=== PATIENT | female | born 1990 | race Caucasian/White ===

== ENCOUNTER 2019-11-30 21:32 | Emergency (ER) | payer SELFPAY ==
[2019-11-30 21:40] VITALS: BP 132/86
[2019-11-30] MEDS ORDERED: LIDOCAINE 1% INJ-PF (10 MG/ML) 30 ML SDV INJ ONE (22:01)
[2019-11-30] MEDS ORDERED: DIPH/PERTUSS(ACELL)/TETANUS VAC/PF 0.5 ML SYR (>=10YO) IM ONE (22:01)
--- NOTE | 2019-11-30 22:04 | ER Document Report ---
HPI - HPI Patient complains to provider of: finger lac Time Seen by Provider: 11/30/19 21:58 Onset: This evening Onset/Duration: Sudden Quality of pain: No pain Pain Level: Denies Context: Patient with laceration to palmar surface of right fourth finger. Patient state s that she was scaling a fish, slipped and cut her finger. Patient unsure of last tetanus immunization. Exacerbated by: Movement Relieved by: Denies Similar symptoms previously: No Recently seen / treated by doctor: No - ROS ROS below otherwise negative: Yes Systems Reviewed and Negative: Yes All other systems reviewed and negative - NEURO Neurology: DENIES: Weakness - GASTROINTESTINAL Gastrointestinal: DENIES: Nausea - DERM Skin Color: Normal Skin Problems: Laceration Past Medical History - General Information source: Patient - Social History Smoking Status: Current Every Day Smoker Frequency of alcohol use: Occasional Drug Abuse: None Occupation: bilingual legal assistant Family History: Reviewed & Not Pertinent - Past Medical History Cardiac Medical History: Reports: Hx Hypercholesterolemia Pulmonary Medical History: Reports: Hx Asthma Endocrine Medical History: Reports: Hx Diabetes Mellitus Type 2 Surgical Hx: Negative Vertical Provider Document - CONSTITUTIONAL Agree With Documented VS: Yes Exam Limitations: No Limitations General Appearance: WD/WN, No Apparent Distress - HEENT HEENT: Atraumatic, Normocephalic - NECK Neck: Normal Inspection - RESPIRATORY Respiratory: No Respiratory Distress - CARDIOVASCULAR Pulses: Normal: Radial - BACK Back: Normal Inspection - MUSCULOSKELETAL/EXTREMETIES Musculoskeletal/Extremeties: MAEW, FROM - NEURO Level of Consciousness: Awake, Alert, Appropriate Motor/Sensory: No Motor Deficit, No Sensory Deficit - DERM Integumentary: Warm, Laceration - 1 cm laceration to palmar surface of right fourth finger over the middle phalanx Course - Vital Signs Vital signs: Temp Pulse Resp BP Pulse Ox 98.7 F 103 H 16 132/86 H 100 11/30/19 21:38 11/30/19 21:38 11/30/19 21:38 11/30/19 21:38 11/30/19 21:38 Procedures - Laceration/Wound Repair Right Finger 4th digit Wound length (cm): 1 Wound's Depth, Shape: Linear Anesthetic type: 1% Lidocaine Wound explored: Clean Wound Repaired With: Sutures Suture Size/Type: 5:0, Nylon Number of Sutures: 1 Post-procedure wound care: Sterile dressing applied Post-procedure NV exam normal: Yes Complications: No Hands front picture: 1 - lac Discharge - Discharge Clinical Impression: Finger laceration Qualifiers: Encounter type: initial encounter Finger: ring finger Damage to nail status: without damage Foreign body presence: without foreign body Laterality: right Qualified Code(s): S61.214A - Laceration without foreign body of right ring finger without damage to nail, initial encounter Condition: Stable Disposition: HOME, SELF-CARE Instructions: Laceration Care (OM), Prophylactic Antibiotic (OM), Tetanus Immunization Given ([facility]) Additional Instructions: Return immediately for any new or worsening symptoms Followup with your primary care provider, call tomorrow to make a followup appointment Suture removal in 8 days Prescriptions: Cephalexin Monohydrate [Keflex 500 mg Capsule] 500 mg PO BID 5 Days #10 capsule Naproxen [Naprosyn 250 Nmg Tablet] 1 tab PO BID #14 tablet Referrals: ALLY RODRIGUEZ DO [ACTIVE STAFF] - Follow up as needed
[2019-11-30] MEDS ORDERED: CEPHALEXIN 500 MG CAPSULE PO ONE (22:42)
== END 2019-11-30 23:16 | disposition home or self-care (01) ==
LOC: ER 21:32
DX: S61.214A Laceration without foreign body of right ring finger without damage to nail, initial encounter (principal); W45.8XXA Other foreign body or object entering through skin, initial encounter; Y93.89 Activity, other specified; F17.200 Nicotine dependence, unspecified, uncomplicated; E11.9 Type 2 diabetes mellitus without complications; J45.909 Unspecified asthma, uncomplicated; Z23 Encounter for immunization
CPT/HCPCS: 90715; 99282